=== PATIENT | male | born 1930 | race Caucasian/White ===

== ENCOUNTER 2020-05-01 21:52 | Inpatient (IN) ==
[2020-05-01] MEDS ORDERED: 0.9 % SODIUM CHLORIDE 1,000 ML IV ONE (22:38)
--- NOTE | 2020-05-01 22:44 | Emergency Department Note ---
SOB HPI General Chief Complaint: Shortness of Breath/Dyspnea Stated Complaint: SOB, covid Time Seen by Provider: 05/01/20 21:55 Source: EMS Mode of arrival: EMS Limitations: no limitations History of Present Illness HPI Narrative: Narrative: [facility] for shortness of breath from [place]. He is pretty confused and is not able to give me any meaningful history or review of systems. He denies any pain or trouble right now. Paperwork sent for facility shows that he is DNR with limited additional interventions. The paperwork shows that he had a low oxygen saturations between 87 and 89% on room air. They were concerned about his blood pressure and increased pulse. His temperature was 99.5 there. He was tachypneic He is requiring 1 L oxygen to keep oxygen saturations over 90%. Related Data Home Medications Medication Instructions Recorded Confirmed spironolactone 25 mg tablet 25 mg PO QDAY tab 03/18/20 04/14/20 acetaminophen 650 mg PO Q6HP PRN 05/02/20 05/02/20 arginine-vitamin C-vitamin E 1 g PO BID 05/02/20 05/02/20 ciprofloxacin HCl 250 mg PO BID 05/02/20 05/02/20 ferrous sulfate 325 mg PO BID 05/02/20 05/02/20 furosemide 20 mg PO BID 05/02/20 05/02/20 gabapentin 300 mg PO QHS 05/02/20 05/02/20 pantoprazole 40 mg PO QDAY 05/02/20 05/02/20 polyethylene glycol 3350 [Miralax] 17 g PO DAILY 05/02/20 05/02/20 potassium chloride 10 meq PO DAILY 05/02/20 05/02/20 warfarin 3 mg PO QDAY 05/02/20 05/02/20 zinc oxide 1 applic TOPICAL TID 05/02/20 05/02/20 Previous Rx's Medication Instructions Recorded levothyroxine 75 mcg tablet 75 mcg PO QAM #90 tab 07/23/19 tamsulosin 0.4 mg capsule 0.4 mg PO QDAY #90 cap 12/31/19 finasteride 5 mg tablet 5 mg PO QDAY #30 tab 03/18/20 catheter 14 Fr #120 each 04/09/20 Allergies Allergy/AdvReac Type Severity Reaction Status Date / Time No Known Drug Allergies Allergy Verified 05/01/20 21:56 Review of Systems ROS ROS Narrative: Narrative: All systems ED: reviewed and negative except as stated. 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, adenomatous (Chronic) Back pain (Chronic) Umbilical hernia (Chronic) PVD (peripheral vascular disease) (Chronic) 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) Elevated PSA (Chronic) Benign prostatic hyperplasia with urinary obstruction (Chronic) Hypertension (Chronic) Hypothyroidism (Chronic) 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) Encounter for long-term (current) use of medications (Chronic) Pulmonary embolism (Chronic) Atrial fibrillation (Chronic) Lymphedema (Chronic) CHF (congestive heart failure) (Chronic ~05/2016) Hyperlipidemia (Chronic) 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) Encounter for monitoring Coumadin therapy (Chronic) Medical History (Updated 05/02/20 @ 00:15 by Dinesh Alexandra MD) Atrial fibrillation (Chronic) Back pain (Chronic) 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) CHF (congestive heart failure) (Chronic ~05/2016) 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) Elevated PSA (Chronic) Encounter for long-term (current) use of medications (Chronic) Encounter for monitoring Coumadin therapy (Chronic) Hyperlipidemia (Chronic) Hypertension (Chronic) Hypothyroidism (Chronic) Lymphedema (Chronic) Osteoarthritis of right hip (Chronic) Polyp of colon, adenomatous (Chronic) Pulmonary embolism (Chronic) PVD (peripheral vascular disease) (Chronic) Umbilical hernia (Chronic) 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 He is wearing nasal cannula oxygen. Normocephalic atraumatic. Conjunctive are clear sclerae white nonicteric. No nasal discharge or congestion. Oropharynx with dry buccal mucosa. His tongue has a black coating on top. Neck is supple without lymphadenopathy or thyromegaly. Heart is regular rate and rhythm no murmur appreciated. He does have subtle wheezes and crackles in both lungs. However he seems to be moving air well and is able to talk in complete sentences without coughing. Abdomen is soft nontender nondistended. No peritoneal signs or guarding. No pedal edema. He is alert but oriented only to person and place-he is a rather poor historian and does not seem to know why he is here or what is going on-he is confused. It is noted he does have an indwelling urinary catheter with dark yellow urine in the bag General Limitations: no limitations Course Vital Signs Vital signs: Vital Signs Temperature 98.5 F 05/01/20 21:52 Pulse Rate 68 05/01/20 21:52 Respiratory Rate 20 05/01/20 21:52 Pulse Oximetry (%) 91 05/01/20 21:52 Temperature 98.5 F 05/02/20 01:54 Pulse Rate 98 H 05/02/20 01:54 Respiratory Rate 25 H 05/02/20 01:54 Blood Pressure 83/58 05/02/20 01:54 Pulse Oximetry (%) 93 05/02/20 01:54 [facility] MDM Narrative Medical decision making narrative: Narrative: COVID-19 positive with dyspnea. Suspect pneumonia. Will get chest x-ray laboratory ABG. Started him on oxygen. Confusion could be secondary to Covid pneumonia or alternatively he may have something else going on such as a UTI. So we will check for that as well. Chest x-ray is compatible with Covid pneumonia. After admission to the ER he developed atrial fibrillation with rapid ventricular response-see EKG. We will start some Cardizem. Acute kidney injury is seen with increase of creatinine to 2.3 now from a baseline of 1.3. He will need to come in the hospital because of these complications of Covid. With Dr. Calle our hospitalist. He agreed to accept the patient to the ICU Lab Data Result diagrams: 05/01/20 23:00 05/01/20 23:00 Labs: Lab Results 05/01/20 05/01/20 05/01/20 Range/Units 23:00 23:00 23:00 WBC 7.2 (4.5-11.0) K/mcL RBC 3.82 L (4.50-5.90) M/mcL Hgb 11.8 L (13.5-16.5) g/dL Hct 35.6 L (41.0-55.0) % MCV 93.2 (80.0-100.0) fL MCH 30.9 (26.0-34.0) pg MCHC 33.1 (31.0-36.0) g/dL RDW 15.0 H (11.5-14.5) % Plt Count 353 (140-440) K/mcL MPV 9.3 (7.4-10.4) fL Neut % (Auto) 56.6 (38.0-78.0) % Lymph % (Auto) 38.3 (15.0-49.0) % [place] % (Auto) 4.8 (1.0-12.0) % Eos % (Auto) 0 (0.0-7.0) % Baso % (Auto) 0.3 (0.0-2.0) % Lymph # (Auto) 2.74 (1.50-4.80) K/mcL [place] # (Auto) 0.34 (0.10-0.90) K/mcL Eos # (Auto) 0 (0.00-0.70) K/mcL Baso # (Auto) 0.02 (0.00-0.20) K/mcL Absolute Neutrophils 4.05 (1.80-8.00) K/mcL PT 32.2 H (11.9-14.5) sec INR 3.1 H (0.9-1.1) VBG Lactic Acid (0.5-2.0) mmol/L Sodium 135 (133-145) mmol/L Potassium 5.1 (3.3-5.1) mmol/L Chloride 103 (96-108) mmol/L Carbon Dioxide 21 L (22-30) mmol/L Anion Gap 11.0 (8.0-16.0) BUN 60 H (8-23) mg/dL Creatinine 2.3 H (0.7-1.2) mg/dL GFR Calculation 25 Glucose 115 H (70-105) mg/dL Calcium 8.4 L (8.6-10.4) mg/dL Magnesium 2.2 (1.6-2.5) mg/dL Total Bilirubin 0.5 (0.1-1.0) mg/dL AST 40 H (<40) U/L ALT 16 (<40) U/L Alkaline Phosphatase 103 (39-117) U/L Total Protein 8.3 (5.9-8.4) gm/dL Albumin 2.6 L (3.2-5.2) gm/dL Globulin 5.7 H (2.2-3.7) gm/dL Albumin/Globulin Ratio 0.5 L (1.0-2.3) Procalcitonin (<0.10) ng/mL 05/01/20 05/01/20 Range/Units 23:00 23:00 WBC (4.5-11.0) K/mcL RBC (4.50-5.90) M/mcL Hgb (13.5-16.5) g/dL Hct (41.0-55.0) % MCV (80.0-100.0) fL MCH (26.0-34.0) pg MCHC (31.0-36.0) g/dL RDW (11.5-14.5) % Plt Count (140-440) K/mcL MPV (7.4-10.4) fL Neut % (Auto) (38.0-78.0) % Lymph % (Auto) (15.0-49.0) % [place] % (Auto) (1.0-12.0) % Eos % (Auto) (0.0-7.0) % Baso % (Auto) (0.0-2.0) % Lymph # (Auto) (1.50-4.80) K/mcL [place] # (Auto) (0.10-0.90) K/mcL Eos # (Auto) (0.00-0.70) K/mcL Baso # (Auto) (0.00-0.20) K/mcL Absolute Neutrophils (1.80-8.00) K/mcL PT (11.9-14.5) sec INR (0.9-1.1) VBG Lactic Acid 1.7 (0.5-2.0) mmol/L Sodium (133-145) mmol/L Potassium (3.3-5.1) mmol/L Chloride (96-108) mmol/L Carbon Dioxide (22-30) mmol/L Anion Gap (8.0-16.0) BUN (8-23) mg/dL Creatinine (0.7-1.2) mg/dL GFR Calculation Glucose (70-105) mg/dL Calcium (8.6-10.4) mg/dL Magnesium (1.6-2.5) mg/dL Total Bilirubin (0.1-1.0) mg/dL AST (<40) U/L ALT (<40) U/L Alkaline Phosphatase (39-117) U/L Total Protein (5.9-8.4) gm/dL Albumin (3.2-5.2) gm/dL Globulin (2.2-3.7) gm/dL Albumin/Globulin Ratio (1.0-2.3) Procalcitonin 0.22 H (<0.10) ng/mL Radiology Data Radiology results reviewed: Yes I reviewed the patient's radiology results. Radiology results narrative: Chest x-ray one-view portable shows patchy infiltrate consistent with Covid pneumonia EKG Data EKG #1: EKG attestation: Yes I reviewed and interpreted this EKG. EKG results narrative: EKG shows likely atrial fibrillation with rapid ventricular response and a rate of 143. Discharge Plan Patient/Caregiver Discharge Instructions Pt seen by MANAGER INTERVENTIONAL/PA only: No Clinical Impression: Pneumonia due to 2019 novel coronavirus, Atrial fibrillation with rapid ventricular response, Acute kidney injury Patient Disposition: Xfer As Inpt ([facility]) Condition: Fair Discharge Date/Time: 05/02/20 01:55
[2020-05-01 23:27] LABS: Basophils # (Auto) 0.02 K/mcL (0.00-0.20); Basophils % (Auto) 0.3 % (0.0-2.0); Eosinophils # (Auto) 0 K/mcL (0.00-0.70); Eosinophils % (Auto) 0 % (0.0-7.0); Hematocrit 35.6 % (41.0-55.0); Hemoglobin 11.8 g/dL (13.5-16.5); Lymphocytes # (Auto) 2.74 K/mcL (1.50-4.80); Lymphocytes % (Auto) 38.3 % (15.0-49.0); Mean Cell Volume 93.2 fL (80.0-100.0); Mean Corpuscular HGB Conc 33.1 g/dL (31.0-36.0); Mean Platelet Volume 9.3 fL (7.4-10.4); Monocytes # (Auto) 0.34 K/mcL (0.10-0.90); Monocytes % (Auto) 4.8 % (1.0-12.0); Neutrophils % (Auto) 56.6 % (38.0-78.0); Platelet Count 353 K/mcL (140-440); RBC 3.82 M/mcL (4.50-5.90); WBC 7.2 K/mcL (4.5-11.0)
[2020-05-01 23:59] LABS: ALT/SGPT 16 U/L (<40); AST/SGOT 40 U/L (<40); Albumin 2.6 gm/dL (3.2-5.2); Albumin/Globulin Ratio 0.5 (1.0-2.3); Alkaline Phosphatase 103 U/L (39-117); Bilirubin,Total 0.5 mg/dL (0.1-1.0); Blood Urea Nitrogen 60 mg/dL (8-23); Calcium 8.4 mg/dL (8.6-10.4); Carbon Dioxide 21 mmol/L (22-30); Chloride 103 mmol/L (96-108); Globulin 5.7 gm/dL (2.2-3.7); Glomerular Filtration Rate 25; Glucose 115 mg/dL (70-105)
[2020-05-02] LABS: INR 3.1 (0.9-1.1); Prothrombin Time 32.2 sec (11.9-14.5)
[2020-05-02] MEDS ORDERED: DILTIAZEM 125 MG in DEXTROSE 5% IN WATER 100 ML IV SCH ×2 (00:15→12:15)
[2020-05-02] MEDS ORDERED: PROMETHAZINE 25 MG/ML VIAL IV PRN ×2 (00:44→02:11)
[2020-05-02] MEDS ORDERED: ACETAMINOPHEN 325 MG TABLET PO PRN ×2 (00:44→02:11)
[2020-05-02] MEDS ORDERED: 0.9 % SODIUM CHLORIDE 1,000 ML IV SCH ×2 (00:45→15:30)
[2020-05-02] MEDS ORDERED: VASOPRESSIN 20 UNIT in DEXTROSE 5% IN WATER 99 ML IV SCH ×2 (00:45→01:15)
[2020-05-02] MEDS ORDERED: AZITHROMYCIN 500 MG in DEXTROSE 5% IN WATER 250 ML IV SCH ×2 (00:45→09:00)
[2020-05-02] MEDS ORDERED: IPRATROPIUM 2.5 ML AMPUL.NEB NEB PRN ×2 (00:49→02:11)
[2020-05-02] MEDS ORDERED: LEVALBUTEROL 0.63 MG/3 ML AMPUL.NEB NEB PRN ×2 (00:49→02:11)
[2020-05-02] MEDS ORDERED: 0.9 % SODIUM CHLORIDE 250 ML IV ONE ×3 (00:56→15:26)
[2020-05-02] MEDS ORDERED: PIPERACILLIN SODIUM/TAZOBACTAM 2.25 GM in DEXTROSE 5% IN WATER 50 ML IV SCH (01:00)
[2020-05-02] MEDS ORDERED: MELATONIN 3 MG TABLET PO SCH ×2 (01:00→02:11)
[2020-05-02] MEDS ORDERED: 0.9 % SODIUM CHLORIDE 250 ML IV SCH ×2 (01:00→01:15)
[2020-05-02] MEDS ORDERED: ESMOLOL 2,500 MG in PREMIX 1 BAG IV SCH ×2 (01:00→02:11)
[2020-05-02] MEDS: 0.9 % SODIUM CHLORIDE 250 ML IV SCH ×8 (02:19→18:25)
[2020-05-02 02:56] LABS: Estimated Average Glucose(eAG) 137 mg/dL; Hemoglobin A1C 6.4 % Hgb (4.0-6.0)
--- NOTE | 2020-05-02 03:07 | XRay Report ---
CLINICAL INFORMATION: dyspnea COMPARISON: None. FINDINGS: The heart is mildly enlarged. Mediastinum and pulmonary vessels are normal. Moderate patchy infiltrates are present in the right midlung in the periphery of the entire left lung. No effusion IMPRESSION: Moderate patchy right midlung and peripheral left lung infiltrates. Infection versus aspiration Interpreted and Authenticated by: Gigi Person 05/02/20
[2020-05-02 03:53] LABS: ALT/SGPT 14 U/L (<40); AST/SGOT 35 U/L (<40); Albumin 2.2 gm/dL (3.2-5.2); Albumin/Globulin Ratio 0.4 (1.0-2.3); Alkaline Phosphatase 94 U/L (39-117); Bilirubin,Total 0.5 mg/dL (0.1-1.0); Blood Urea Nitrogen 56 mg/dL (8-23); Calcium 8.2 mg/dL (8.6-10.4); Carbon Dioxide 18 mmol/L (22-30); Chloride 98 mmol/L (96-108); Globulin 5.3 gm/dL (2.2-3.7); Glomerular Filtration Rate 27; Glucose 282 mg/dL (70-105)
[2020-05-02] MEDS: 0.9 % SODIUM CHLORIDE 10 ML SYRINGE IV SCH ×4 (05:27→22:18)
[2020-05-02] MEDS ORDERED: 0.9 % SODIUM CHLORIDE 10 ML SYRINGE IV SCH (06:00)
[2020-05-02 07:20] LABS: Basophils # (Auto) 0.01 K/mcL (0.00-0.20); Basophils % (Auto) 0.1 % (0.0-2.0); Eosinophils # (Auto) 0.01 K/mcL (0.00-0.70); Eosinophils % (Auto) 0.1 % (0.0-7.0); Hematocrit 33.5 % (41.0-55.0); Hemoglobin 11.1 g/dL (13.5-16.5); Lymphocytes # (Auto) 3.57 K/mcL (1.50-4.80); Lymphocytes % (Auto) 44.7 % (15.0-49.0); Mean Cell Volume 94.1 fL (80.0-100.0); Mean Corpuscular HGB Conc 33.1 g/dL (31.0-36.0); Mean Platelet Volume 9.9 fL (7.4-10.4); Monocytes # (Auto) 0.38 K/mcL (0.10-0.90); Monocytes % (Auto) 4.8 % (1.0-12.0); Neutrophils % (Auto) 50.3 % (38.0-78.0); Platelet Count 310 K/mcL (140-440); RBC 3.56 M/mcL (4.50-5.90); Red Cell Distribution Width 15.3 % (11.5-14.5)
[2020-05-02] MEDS ORDERED: PANTOPRAZOLE 40 MG TABLET PO SCH ×2 (07:30)
[2020-05-02 07:52] LABS: INR 3.2 (0.9-1.1); Prothrombin Time 33.4 sec (11.9-14.5)
[2020-05-02] MEDS: PIPERACILLIN SODIUM/TAZOBACTAM 2.25 GM in DEXTROSE 5% IN WATER 50 ML IV SCH ×3 (08:51→17:38)
[2020-05-02] MEDS ORDERED: VITAMIN D3 1,000 UNIT TABLET PO SCH ×2 (09:00)
[2020-05-02] MEDS ORDERED: CHLORHEXIDINE GLUCONATE 1 ML ORAL.SOL SWABMOUTH SCH ×2 (09:00)
[2020-05-02] MEDS ORDERED: THIAMINE 100 MG TABLET PO SCH ×2 (09:00)
[2020-05-02] MEDS ORDERED: METOPROLOL SUCCINATE 25 MG TAB.XL.24H PO SCH (09:00)
[2020-05-02] MEDS ORDERED: DEXAMETHASONE 4 MG TABLET PO SCH ×2 (09:00)
--- NOTE | 2020-05-02 11:12 | Internal Med History&Physical ---
HPI History of Present Illness Patient information: Note initiated : 05/02/20 at 11:10 am Service Date, if different from initiated Date: [] Patient: Yusuf Schwab a 89 y/o M admitted on 05/02/20 for SOB, covid. Chief Complaint: [] History of present illness: Mr. Schwab is a 89 year old M with a past medical history of CHF, CAD, atrial fibrillation, CKD, positive COVID-19 and hypothyroidism who was brought to the ER from [facility] facility due to shortness of breath, oxygen desaturation, and low-grade fever. Patient is not able to give meaningful history due to mental status. In the ER, chest x-ray showed Moderate patchy right midlung and peripheral left lung infiltrates. Infection versus aspiration. His heart rate was high and the blood pressure was soft. Diltiazem was given to control the heart rate. Review of Systems ROS unobtainable: due to mental status PFSH PFSH All Active Problems Pneumonia due to 2019 novel coronavirus (Acute) Atrial fibrillation with rapid ventricular response (Acute) Acute kidney injury (Acute) Chronic kidney disease (Acute) Urinary retention (Acute) Bilateral hydronephrosis (Acute) UTI (urinary tract infection) (Acute) Venous stasis ulcer limited to breakdown of skin with varicose veins (Acute) Medicare annual wellness visit, subsequent (Acute) History of total right hip replacement (Chronic) Polyp of colon, adenomatous (Chronic) Back pain (Chronic) Umbilical hernia (Chronic) PVD (peripheral vascular disease) (Chronic) 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) Elevated PSA (Chronic) Benign prostatic hyperplasia with urinary obstruction (Chronic) Hypertension (Chronic) Hypothyroidism (Chronic) 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) Encounter for long-term (current) use of medications (Chronic) Pulmonary embolism (Chronic) Atrial fibrillation (Chronic) Lymphedema (Chronic) CHF (congestive heart failure) (Chronic ~05/2016) Hyperlipidemia (Chronic) 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) Encounter for monitoring Coumadin therapy (Chronic) Medical History Atrial fibrillation (Chronic) Back pain (Chronic) 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) CHF (congestive heart failure) (Chronic ~05/2016) 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) Elevated PSA (Chronic) Encounter for long-term (current) use of medications (Chronic) Encounter for monitoring Coumadin therapy (Chronic) Hyperlipidemia (Chronic) Hypertension (Chronic) Hypothyroidism (Chronic) Lymphedema (Chronic) Osteoarthritis of right hip (Chronic) Polyp of colon, adenomatous (Chronic) Pulmonary embolism (Chronic) PVD (peripheral vascular disease) (Chronic) Umbilical hernia (Chronic) 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) Surgical History History of total right hip replacement (Chronic) Family History Other No pertinent family history Social History marital status: unknown occupational status: retired smoking status: Unknown if ever smoked alcohol intake frequency: does not drink substance use type: does not use MEDS/ALLERGIES Home Medications and Allergies Home Medications Medication Instructions Recorded Confirmed Type levothyroxine 75 mcg tablet 75 mcg PO QAM #90 tab 07/23/19 05/02/20 Rx tamsulosin 0.4 mg capsule 0.4 mg PO QDAY #90 cap 12/31/19 05/02/20 Rx finasteride 5 mg tablet 5 mg PO QDAY #30 tab 03/18/20 05/02/20 Rx spironolactone 25 mg tablet 25 mg PO QDAY tab 03/18/20 05/02/20 History catheter 14 Fr #120 each 04/09/20 04/14/20 Rx acetaminophen 650 mg PO Q6HP PRN 05/02/20 05/02/20 History arginine-vitamin C-vitamin E 1 g PO BID 05/02/20 05/02/20 History ciprofloxacin HCl 250 mg PO BID 05/02/20 05/02/20 History ferrous sulfate 325 mg PO BID 05/02/20 05/02/20 History furosemide 20 mg PO BID 05/02/20 05/02/20 History gabapentin 300 mg PO QHS 05/02/20 05/02/20 History pantoprazole 40 mg PO QDAY 05/02/20 05/02/20 History polyethylene glycol 3350 [Miralax] 17 g PO DAILY 05/02/20 05/02/20 History potassium chloride 10 meq PO DAILY 05/02/20 05/02/20 History warfarin 3 mg PO QDAY 05/02/20 05/02/20 History zinc oxide 1 applic TOPICAL TID 05/02/20 05/02/20 History Allergies Allergy/AdvReac Type Severity Reaction Status Date / Time No Known Drug Allergies Allergy Verified 05/01/20 21:56 EXAM Constitutional Vitals: Temp Pulse Resp BP Pulse Ox 97.8 F 64 21 95/46 93 05/02/20 08:03 05/02/20 10:01 05/02/20 10:01 05/02/20 10:01 05/02/20 10:01 Additional findings Additional findings: General - No acute distress Eyes -no conjunctival injection ENT no rhinorrhea, no noticeable or palpable swelling Neck no JVD, no thyromegaly Respiratory: Lungs -diminished breathing sounds, bibasilar crackles. Cardiovascular -irregular irregular, no m/r/g, GI - Normal bowel sounds, no distended, soft. Extremeties - No edema, cyanosis or clubbing Hemo/lymphatic/immune no lymphadenopathy Neurological Alert and awake Psychiatry unable to complete due to mental status DATA Data Completed and Pending Labs: Labs from last 24 hours 05/02/20 05/02/20 05/02/20 13:50 07:40 05:04 WBC 8.0 RBC 3.56 L Hgb 11.1 L Hct 33.5 L MCV 94.1 MCH 31.2 MCHC 33.1 RDW 15.3 H Plt Count 310 MPV 9.9 Neut % (Auto) 50.3 Lymph % (Auto) 44.7 [place] % (Auto) 4.8 Eos % (Auto) 0.1 Baso % (Auto) 0.1 Lymph # (Auto) 3.57 [place] # (Auto) 0.38 Eos # (Auto) 0.01 Baso # (Auto) 0.01 Absolute Neutrophils 4.02 PT INR VBG Lactic Acid Sodium 129 L Potassium 4.7 Chloride 98 Carbon Dioxide 18 L Anion Gap 13.0 BUN 56 H Creatinine 2.1 H GFR Calculation 27 Glucose 282 H Hemoglobin A1c 6.4 H Estim Average Glucose 137 Calcium 8.2 L Magnesium Ferritin 1986.0 H Total Bilirubin 0.5 AST 35 ALT 14 Alkaline Phosphatase 94 Troponin T 0.07 H* C-Reactive Protein 6.80 H NT-Pro-B Natriuret Pep 868.0 H Total Protein 7.5 Albumin 2.2 L Globulin 5.3 H Albumin/Globulin Ratio 0.4 L Procalcitonin 05/02/20 05/02/20 05/01/20 05:04 01:50 23:00 WBC RBC Hgb Hct MCV MCH MCHC RDW Plt Count MPV Neut % (Auto) Lymph % (Auto) [place] % (Auto) Eos % (Auto) Baso % (Auto) Lymph # (Auto) [place] # (Auto) Eos # (Auto) Baso # (Auto) Absolute Neutrophils PT 33.4 H INR 3.2 H VBG Lactic Acid Sodium Potassium Chloride Carbon Dioxide Anion Gap BUN Creatinine GFR Calculation Glucose Hemoglobin A1c Estim Average Glucose Calcium Magnesium Ferritin Total Bilirubin AST ALT Alkaline Phosphatase Troponin T 0.07 H* C-Reactive Protein NT-Pro-B Natriuret Pep Total Protein Albumin Globulin Albumin/Globulin Ratio Procalcitonin 0.22 H 05/01/20 05/01/20 05/01/20 23:00 23:00 23:00 WBC RBC Hgb Hct MCV MCH MCHC RDW Plt Count MPV Neut % (Auto) Lymph % (Auto) [place] % (Auto) Eos % (Auto) Baso % (Auto) Lymph # (Auto) [place] # (Auto) Eos # (Auto) Baso # (Auto) Absolute Neutrophils PT 32.2 H INR 3.1 H VBG Lactic Acid 1.7 Sodium 135 Potassium 5.1 Chloride 103 Carbon Dioxide 21 L Anion Gap 11.0 BUN 60 H Creatinine 2.3 H GFR Calculation 25 Glucose 115 H Hemoglobin A1c Estim Average Glucose Calcium 8.4 L Magnesium 2.2 Ferritin Total Bilirubin 0.5 AST 40 H ALT 16 Alkaline Phosphatase 103 Troponin T C-Reactive Protein NT-Pro-B Natriuret Pep Total Protein 8.3 Albumin 2.6 L Globulin 5.7 H Albumin/Globulin Ratio 0.5 L Procalcitonin 05/01/20 23:00 WBC 7.2 RBC 3.82 L Hgb 11.8 L Hct 35.6 L MCV 93.2 MCH 30.9 MCHC 33.1 RDW 15.0 H Plt Count 353 MPV 9.3 Neut % (Auto) 56.6 Lymph % (Auto) 38.3 [place] % (Auto) 4.8 Eos % (Auto) 0 Baso % (Auto) 0.3 Lymph # (Auto) 2.74 [place] # (Auto) 0.34 Eos # (Auto) 0 Baso # (Auto) 0.02 Absolute Neutrophils 4.05 PT INR VBG Lactic Acid Sodium Potassium Chloride Carbon Dioxide Anion Gap BUN Creatinine GFR Calculation Glucose Hemoglobin A1c Estim Average Glucose Calcium Magnesium Ferritin Total Bilirubin AST ALT Alkaline Phosphatase Troponin T C-Reactive Protein NT-Pro-B Natriuret Pep Total Protein Albumin Globulin Albumin/Globulin Ratio Procalcitonin A/P Narrative A/P Narrative: 1. Acute hypoxic respiratory failure Pulse ox Oxygen therapy to keep oxygen saturations greater than 92% He is now on 2L 2. Pneumonia, Covid 19, CAP or aspiration 3. Covid 19 positive Blood culture Sputum culture MRSA screen Azithromycin and Zosyn Inhalers On warfarin Dexamethasone 6 mg p.o. daily Thiamine, vitamin D, melatonin 25 hydroxy vitamin D, CRP, ferritin, lactic acid, calcitonin, troponin Speech pathology consult 4. Septic shock/hypotension Antibiotics Vasopressin as needed to keep MAP 65 5. Atrial fibrillation with RVR Diltiazem drip as needed Warfarin, dosing by pharmacy 6. LILI on CKD creatinine 1.0 on Intake and output Avoid nephrotoxic meds Repeat renal function in morning 7. Supratherapeutic INR 3.1 Warfarin is on hold, dosing by pharmacy Repeat INR daily 8. Hypothyroidism Continue Synthroid 9. CHF Intake and output 10. Hyponatremia Repeat sodium in the morning 11. Elevation of troponin Troponin 0.07, 0.07 Could be due to LILI on CKD EKG no ST elevation Aspirin and Lipitor 12. DVT prophylaxis: Warfarin 13. CODE STATUS: DNR Time Spent With Patient Time: Total time spent is greater than 50% in coordination of care (as documented) at patient's floor/unit and/or counseling patient:
[2020-05-02] MEDS: VASOPRESSIN 20 UNIT in DEXTROSE 5% IN WATER 99 ML IV SCH ×2 (15:31→18:52)
--- NOTE | 2020-05-02 18:51 | Event Note ---
Event Note Event Note: FLORA Todd and I updated and explained his condition to daughter Brisa (POA) by phone ([phone]) and discussed the treatment options including transferring him to higher level. Brisa would not like him to suffer and would like to purse comfort care for him. Just give him pain meds, ativan for anxiety/agitation, etc and discontinue all other meds including vasopressin which are not related to comfort care. No blood test. No further workup. Brisa would like to start comfort care now.
[2020-05-02] MEDS ORDERED: morphine 2 MG/ML VIAL IV PRN (18:53)
[2020-05-02] MEDS ORDERED: LORazepam 2 MG/ML VIAL IV PRN (18:53)
[2020-05-02] MEDS ORDERED: ONDANSETRON 4 MG/2 ML VIAL IV PRN ×2 (18:53→20:55)
[2020-05-02] MEDS ORDERED: SCOPOLAMINE 1 PATCH PATCH TOPICAL SCH (19:00)
[2020-05-02] MEDS ORDERED: FERROUS SULFATE 325 MG TABLET PO SCH (21:00)
[2020-05-02] MEDS ORDERED: GABAPENTIN 300 MG CAPSULE PO SCH (21:00)
[2020-05-02] MEDS: morphine 2 MG/ML VIAL IV PRN (22:18)
[2020-05-03] MEDS: 0.9 % SODIUM CHLORIDE 10 ML SYRINGE IV SCH ×3 (05:56→22:06)
[2020-05-03] MEDS: morphine 2 MG/ML VIAL IV PRN ×2 (05:58→09:43)
[2020-05-03] MEDS ORDERED: LEVOTHYROXINE 75 MCG TABLET PO SCH (07:30)
[2020-05-03] MEDS ORDERED: TAMSULOSIN 0.4 MG CAPSULE PO SCH (09:00)
[2020-05-03] MEDS ORDERED: ATORVASTATIN 40 MG TABLET PO SCH (09:00)
[2020-05-03] MEDS ORDERED: FINASTERIDE 5 MG TABLET PO SCH (09:00)
[2020-05-03] MEDS ORDERED: ASPIRIN 81 MG TAB.CHEW PO SCH (09:00)
[2020-05-03] MEDS ORDERED: POLYETHYLENE GLYCOL 3350 17 GM PACKET PO SCH (09:00)
--- NOTE | 2020-05-03 17:05 | Internal Med Progress Note ---
SUBJECTIVE Subjective Patient information: Note initiated : 05/03/20 at 5:03 pm Service Date, if different from initiated Date: [] Patient: Yusuf Schwab a 89 y/o M admitted on 05/02/20 for SOB, covid. Chief Complaint: [] Mr. Schwab is a 89 year old M with a past medical history of CHF, CAD, atrial fibrillation, CKD, positive COVID-19 and hypothyroidism who was brought to the ER from [facility] due to shortness of breath, oxygen desaturation, and low-grade fever. Patient is not able to give meaningful history due to mental status. In the ER, chest x-ray showed Moderate patchy right midlung and peripheral left lung infiltrates. Infection versus aspiration. His heart rate was high and the blood pressure was soft. Diltiazem was given to control the heart rate. 05/03 Comfort care was initiated last night. Continue comfort care Review of Systems ROS unobtainable: due to mental status Constitutional Vitals: Vital Signs Temp Pulse Resp BP Pulse Ox 98.1 F 77 14 104/64 89 L 05/03/20 10:03 05/03/20 10:03 05/03/20 04:14 05/03/20 10:03 05/03/20 10:03 Period Temp Pulse Resp BP Sys/Lima Pulse Ox Last 24 Hr 97.2 F-98.8 F 30-77 14-23 91-117/50-72 89-97 Intake and Output 05/03/20 05/03/20 05/03/20 05:59 13:59 21:59 Intake Total 0 540 Output Total 550 600 Balance -550 -60 Intake & Output: Intake & Output 05/03/20 05/03/20 05/03/20 05:59 13:59 21:59 Intake Total 0 540 Output Total 550 600 Balance -550 -60 Intake: Oral 0 540 Output: Urine Catheter Amount 550 600 Other: Meal Lunch Percent of Meal Consumed 50% Feeding Ability Assist with Tray Set Up Urine Appearance Cloudy Clear Urine Color Bright Yellow Bright Yellow Additional findings Additional findings: General: sleeping, no acute distress Eye: no conjunctival injection. HEENT: mild JVD or thyroid megaly Chest: No abnormalities Heart: RRR, no gallop Lungs: Deminished BS, bibasilar crackles Abdomen: Normal bowel sounds, soft, distended Extremities: no cyanosis or clubbing Neurology: sleeping Psych: sleeping OBJ DATA Labs CBC & Chem 7: 05/02/20 05:04 05/02/20 13:50 Labs: Abnormal Lab Results 05/02/20 05/02/20 05/02/20 14:02 13:50 07:40 RBC Hgb Hct RDW PT INR Sodium 129 L Carbon Dioxide 18 L BUN 56 H Creatinine 2.1 H Glucose 282 H Hemoglobin A1c 6.4 H Calcium 8.2 L Ferritin 1986.0 H AST Troponin T 0.06 H* 0.07 H* C-Reactive Protein 6.80 H NT-Pro-B Natriuret Pep 868.0 H Albumin 2.2 L Globulin 5.3 H Albumin/Globulin Ratio 0.4 L Procalcitonin 05/02/20 05/02/20 05/02/20 05:04 05:04 01:50 RBC 3.56 L Hgb 11.1 L Hct 33.5 L RDW 15.3 H PT 33.4 H INR 3.2 H Sodium Carbon Dioxide BUN Creatinine Glucose Hemoglobin A1c Calcium Ferritin AST Troponin T 0.07 H* C-Reactive Protein NT-Pro-B Natriuret Pep Albumin Globulin Albumin/Globulin Ratio Procalcitonin 05/01/20 05/01/20 05/01/20 23:00 23:00 23:00 RBC Hgb Hct RDW PT 32.2 H INR 3.1 H Sodium Carbon Dioxide 21 L BUN 60 H Creatinine 2.3 H Glucose 115 H Hemoglobin A1c Calcium 8.4 L Ferritin AST 40 H Troponin T C-Reactive Protein NT-Pro-B Natriuret Pep Albumin 2.6 L Globulin 5.7 H Albumin/Globulin Ratio 0.5 L Procalcitonin 0.22 H 05/01/20 23:00 RBC 3.82 L Hgb 11.8 L Hct 35.6 L RDW 15.0 H PT INR Sodium Carbon Dioxide BUN Creatinine Glucose Hemoglobin A1c Calcium Ferritin AST Troponin T C-Reactive Protein NT-Pro-B Natriuret Pep Albumin Globulin Albumin/Globulin Ratio Procalcitonin Meds: Medications Lorazepam (Ativan) 0.5 mg IV Q2-4HP PRN PRN Reason: ANXIETY/SEDATION Morphine Sulfate (Morphine) 2 mg IV Q2HP PRN; Protocol PRN Reason: Per Pain Protocol Last Admin: 05/03/20 09:43 Dose: 2 mg Documented by: Ondansetron HCl (Zofran) 4 mg IV Q4-6HP PRN PRN Reason: Nausea And Vomiting Scopolamine (Transderm-Scop) 1 patch TOPICAL Q72H [facility] Sodium Chloride (Saline Flush) 10 ml IV Q8 BIBI Last Admin: 05/03/20 13:06 Dose: 10 ml Documented by: A/P Narrative A/P Narrative: Assessment: 1. Acute hypoxic respiratory failure 2. Pneumonia, Covid 19, CAP or aspiration 3. Covid 19 positive 4. Septic shock/hypotension 5. Atrial fibrillation with RVR 6. LILI on CKD 7. Supratherapeutic INR 3.1 8. Hypothyroidism 9. CHF 10. Hyponatremia 11. Elevation of troponin Plan: Comfort care only: Ativan 0.5 mg IV every 2 to 4 hours as needed Morphine 2 mg IV every 2 hours as needed Zofran 4 mg will IV every 4 to 6 hours as needed Scopolamine patch 1 patch topical q. 72 Time Spent With Patient Time: Total time spent is greater than 50% in coordination of care (as documented) at patient's floor/unit and/or counseling patient:
[2020-05-04] MEDS: morphine 2 MG/ML VIAL IV PRN ×5 (00:01→21:09)
[2020-05-04] MEDS: 0.9 % SODIUM CHLORIDE 10 ML SYRINGE IV SCH ×4 (03:55→21:08)
--- NOTE | 2020-05-04 14:50 | Internal Med Progress Note ---
SUBJECTIVE Subjective Patient information: Note initiated : 05/04/20 at 2:48 pm Service Date, if different from initiated Date: [] Patient: Yusuf Schwab a 89 y/o M admitted on 05/02/20 for SOB, covid. Chief Complaint: [] Mr. Schwab is a 89 year old M with a past medical history of CHF, CAD, atrial fibrillation, CKD, positive COVID-19 and hypothyroidism who was brought to the ER from [facility] due to shortness of breath, oxygen desaturation, and low-grade fever. Patient is not able to give meaningful history due to mental status. In the ER, chest x-ray showed Moderate patchy right midlung and peripheral left lung infiltrates. Infection versus aspiration. His heart rate was high and the blood pressure was soft. Diltiazem was given to control the heart rate. 05/03 Comfort care was initiated last night. Continue comfort care 05/04 Patient seems to be comfortable Continue comfort care Review of Systems ROS unobtainable: due to mental status Constitutional Vitals: Vital Signs Temp Pulse Resp BP Pulse Ox 98.6 F 49 L 30 H 96/52 82 L 05/04/20 10:36 05/04/20 10:36 05/04/20 10:36 05/04/20 10:36 05/04/20 10:36 Period Temp Pulse Resp BP Sys/Lima Pulse Ox Last 24 Hr 97.7 F-98.6 F 49-128 24-30 96-97/52-64 82-86 Intake and Output 05/04/20 05/04/20 05/04/20 05:59 13:59 21:59 Output Total 325 Balance -325 Intake & Output: Intake & Output 05/04/20 05/04/20 05/04/20 05:59 13:59 21:59 Output Total 325 Balance -325 Output: Urine Catheter Amount 325 Other: Urine Appearance Cloudy Urine Color Bright Yellow Additional findings Additional findings: General: sleeping, no acute distress Eye: no conjunctival injection. HEENT: mild JVD or thyroid megaly Chest: No abnormalities Heart: RRR, no gallop Lungs: Deminished BS, bibasilar crackles Abdomen: Normal bowel sounds, soft, distended Extremities: no cyanosis or clubbing Neurology: sleeping Psych: sleeping OBJ DATA Labs CBC & Chem 7: 05/02/20 05:04 05/02/20 13:50 Labs: Abnormal Lab Results 05/02/20 05/02/20 05/02/20 14:02 13:50 07:40 RBC Hgb Hct RDW PT INR Sodium 129 L Carbon Dioxide 18 L BUN 56 H Creatinine 2.1 H Glucose 282 H Hemoglobin A1c 6.4 H Calcium 8.2 L Ferritin 1986.0 H AST Troponin T 0.06 H* 0.07 H* C-Reactive Protein 6.80 H NT-Pro-B Natriuret Pep 868.0 H Albumin 2.2 L Globulin 5.3 H Albumin/Globulin Ratio 0.4 L Procalcitonin 05/02/20 05/02/20 05/02/20 05:04 05:04 01:50 RBC 3.56 L Hgb 11.1 L Hct 33.5 L RDW 15.3 H PT 33.4 H INR 3.2 H Sodium Carbon Dioxide BUN Creatinine Glucose Hemoglobin A1c Calcium Ferritin AST Troponin T 0.07 H* C-Reactive Protein NT-Pro-B Natriuret Pep Albumin Globulin Albumin/Globulin Ratio Procalcitonin 05/01/20 05/01/20 05/01/20 23:00 23:00 23:00 RBC Hgb Hct RDW PT 32.2 H INR 3.1 H Sodium Carbon Dioxide 21 L BUN 60 H Creatinine 2.3 H Glucose 115 H Hemoglobin A1c Calcium 8.4 L Ferritin AST 40 H Troponin T C-Reactive Protein NT-Pro-B Natriuret Pep Albumin 2.6 L Globulin 5.7 H Albumin/Globulin Ratio 0.5 L Procalcitonin 0.22 H 05/01/20 23:00 RBC 3.82 L Hgb 11.8 L Hct 35.6 L RDW 15.0 H PT INR Sodium Carbon Dioxide BUN Creatinine Glucose Hemoglobin A1c Calcium Ferritin AST Troponin T C-Reactive Protein NT-Pro-B Natriuret Pep Albumin Globulin Albumin/Globulin Ratio Procalcitonin Meds: Medications Lorazepam (Ativan) 0.5 mg IV Q2-4HP PRN PRN Reason: ANXIETY/SEDATION Morphine Sulfate (Morphine) 2 mg IV Q2HP PRN; Protocol PRN Reason: Per Pain Protocol Last Admin: 05/04/20 10:27 Dose: 2 mg Documented by: Ondansetron HCl (Zofran) 4 mg IV Q4-6HP PRN PRN Reason: Nausea And Vomiting Scopolamine (Transderm-Scop) 1 patch TOPICAL Q72H [facility] Sodium Chloride (Saline Flush) 10 ml IV Q8 [facility] Last Admin: 05/04/20 03:55 Dose: 10 ml Documented by: A/P Narrative A/P Narrative: 1. Acute hypoxic respiratory failure 2. Pneumonia, Covid 19, CAP or aspiration 3. Covid 19 positive 4. Septic shock/hypotension 5. Atrial fibrillation with RVR 6. LILI on CKD 7. Supratherapeutic INR 3.1 8. Hypothyroidism 9. CHF 10. Hyponatremia 11. Elevation of troponin Plan: Comfort care only: Ativan 0.5 mg IV every 2 to 4 hours as needed Morphine 2 mg IV every 2 hours as needed Zofran 4 mg will IV every 4 to 6 hours as needed Scopolamine patch 1 patch topical q. 72 Time Spent With Patient Time: Total time spent is greater than 50% in coordination of care (as documented) at patient's floor/unit and/or counseling patient:
[2020-05-05] MEDS: morphine 2 MG/ML VIAL IV PRN ×2 (01:53→15:13)
[2020-05-05] MEDS: 0.9 % SODIUM CHLORIDE 10 ML SYRINGE IV SCH ×4 (04:23→21:56)
[2020-05-05] MEDS ORDERED: SCOPOLAMINE 1 PATCH PATCH TOPICAL SCH (19:00)
--- NOTE | 2020-05-05 20:16 | Internal Med Progress Note ---
SUBJECTIVE Subjective Patient information: Note initiated : 05/05/20 at 8:14 pm Service Date, if different from initiated Date: [] Patient: Yusuf Schwab a 89 y/o M admitted on 05/02/20 for SOB, covid. Chief Complaint: [] Mr. Schwab is a 89 year old M with a past medical history of CHF, CAD, atrial fibrillation, CKD, positive COVID-19 and hypothyroidism who was brought to the ER from [facility] due to shortness of breath, oxygen desaturation, and low-grade fever. Patient is not able to give meaningful history due to mental status. In the ER, chest x-ray showed Moderate patchy right midlung and peripheral left lung infiltrates. Infection versus aspiration. His heart rate was high and the blood pressure was soft. Diltiazem was given to control the heart rate. 05/03 Comfort care was initiated last night. Continue comfort care 05/04 Patient seems to be comfortable Continue comfort care 05/05 Pt seems to be comfortable. Continue comfort care. Review of Systems ROS unobtainable: due to mental status Constitutional Vitals: Vital Signs Temp Pulse Resp BP Pulse Ox 98.0 F 119 H 28 H 82/44 74 L 05/05/20 08:00 05/05/20 18:52 05/05/20 18:52 05/05/20 18:52 05/05/20 18:52 Period Temp Pulse Resp BP Sys/Lima Pulse Ox Last 24 Hr 98.0 F 119-124 28-30 82-95/44-57 74-78 Intake and Output 05/05/20 05/05/20 05/05/20 05:59 13:59 21:59 Intake Total 120 Balance 120 Intake & Output: Intake & Output 05/05/20 05/05/20 05/05/20 05:59 13:59 21:59 Intake Total 120 Balance 120 Intake: Oral 120 Other: Percent of Meal Consumed Refused Urine Appearance Cloudy Urine Color Light [place] Additional findings Additional findings: General: sleeping, no acute distress Eye: no conjunctival injection. HEENT: mild JVD or thyroid megaly Chest: No abnormalities Heart: RRR, no gallop Lungs: Deminished BS, bibasilar crackles Abdomen: Normal bowel sounds, soft, distended Extremities: no cyanosis or clubbing Neurology: sleeping Psych: sleeping OBJ DATA Labs CBC & Chem 7: 05/02/20 05:04 05/02/20 13:50 Meds: Medications Lorazepam (Ativan) 0.5 mg IV Q2-4HP PRN PRN Reason: ANXIETY/SEDATION Morphine Sulfate (Morphine) 2 mg IV Q2HP PRN; Protocol PRN Reason: Per Pain Protocol Last Admin: 05/05/20 15:13 Dose: 2 mg Documented by: Ondansetron HCl (Zofran) 4 mg IV Q4-6HP PRN PRN Reason: Nausea And Vomiting Scopolamine (Transderm-Scop) 1 patch TOPICAL Q72H [facility] Last Admin: 05/05/20 18:31 Dose: 1 patch Documented by: Sodium Chloride (Saline Flush) 10 ml IV Q8 [facility] Last Admin: 05/05/20 18:32 Dose: 10 ml Documented by: A/P Narrative A/P Narrative: 1. Acute hypoxic respiratory failure 2. Pneumonia, Covid 19, CAP or aspiration 3. Covid 19 positive 4. Septic shock/hypotension 5. Atrial fibrillation with RVR 6. LILI on CKD 7. Supratherapeutic INR 3.1 8. Hypothyroidism 9. CHF 10. Hyponatremia 11. Elevation of troponin Plan: Comfort care only: Ativan 0.5 mg IV every 2 to 4 hours as needed Morphine 2 mg IV every 2 hours as needed Zofran 4 mg will IV every 4 to 6 hours as needed Scopolamine patch 1 patch topical q. 72 Time Spent With Patient Time: Total time spent is greater than 50% in coordination of care (as documented) at patient's floor/unit and/or counseling patient:
[2020-05-06] MEDS: morphine 2 MG/ML VIAL IV PRN ×4 (00:01→19:30)
[2020-05-06] MEDS: 0.9 % SODIUM CHLORIDE 10 ML SYRINGE IV SCH ×4 (04:16→20:02)
--- NOTE | 2020-05-06 12:36 | Internal Med Progress Note ---
SUBJECTIVE Subjective Patient information: Note initiated : 05/06/20 at 12:33 pm Service Date, if different from initiated Date: [] Patient: Yusuf Schwab a 89 y/o M admitted on 05/02/20 for SOB, covid. Chief Complaint: Interval history: Mr. Schwab is a 89 year old M with a past medical history of CHF, CAD, atrial fibrillation, CKD, positive COVID-19 and hypothyroidism who was brought to the ER from [facility] due to shortness of breath, oxygen desaturation, and low-grade fever. Patient is not able to give meaningful history due to mental status. In the ER, chest x-ray showed Moderate patchy right midlung and peripheral left lung infiltrates. Infection versus aspiration. His heart rate was high and the blood pressure was soft. Diltiazem was given to control the heart rate. 05/03 Comfort care was initiated last night. Continue comfort care 05/04 Patient seems to be comfortable Continue comfort care 05/05 Pt seems to be comfortable. Continue comfort care. 05/06-patient appears comfortable. Requiring frequent doses of morphine. Remains minimally responsive occasionally responding g to name at times, no active concerns per nursing staff. On COVID-19 precautions. Constitutional Vitals: Vital Signs Temp Pulse Resp BP Pulse Ox 98.1 F 93 H 32 H 98/64 78 L 05/06/20 06:53 05/06/20 07:25 05/06/20 07:25 05/06/20 06:53 05/06/20 07:25 Period Temp Pulse Resp BP Sys/Lima Pulse Ox Last 24 Hr 98.1 F 93-119 28-32 82-98/44-64 74-78 Intake and Output 05/05/20 05/06/20 05/06/20 21:59 05:59 13:59 Output Total 1200 Balance -1200 Labored breathing Minimally responsive Intake & Output: Intake & Output 05/05/20 05/06/20 05/06/20 21:59 05:59 13:59 Output Total 1200 Balance -1200 Output: Urine Catheter Amount 1200 Other: Percent of Meal Consumed Refused Urine Appearance Cloudy Urine Color Light Bianca OBJ DATA Labs CBC & Chem 7: 05/02/20 05:04 05/02/20 13:50 Meds: Medications Lorazepam (Ativan) 0.5 mg IV Q2-4HP PRN PRN Reason: ANXIETY/SEDATION Morphine Sulfate (Morphine) 2 mg IV Q2HP PRN; Protocol PRN Reason: Per Pain Protocol Last Admin: 05/06/20 04:16 Dose: 2 mg Documented by: Ondansetron HCl (Zofran) 4 mg IV Q4-6HP PRN PRN Reason: Nausea And Vomiting Scopolamine (Transderm-Scop) 1 patch TOPICAL Q72H [facility] Last Admin: 05/05/20 18:31 Dose: 1 patch Documented by: Sodium Chloride (Saline Flush) 10 ml IV Q8 [facility] Last Admin: 05/06/20 04:16 Dose: 10 ml Documented by: A/P Narrative A/P Narrative: 1. Acute hypoxic respiratory failure 2. Pneumonia, Covid 19 3. Covid 19 positive 4. Septic shock/hypotension 5. Atrial fibrillation with RVR 6. LILI on CKD 7. Supratherapeutic INR 3.1 8. Hypothyroidism 9. CHF 10. Hyponatremia 11. Elevation of troponin Plan: Continue aggressive end-of-life care All therapies directed towards pain and symptom management as below Ativan 0.5 mg IV every 2 to 4 hours as needed Morphine 2 mg IV every 2 hours as needed Zofran 4 mg will IV every 4 to 6 hours as needed Scopolamine patch 1 patch topical q. 72 Time Spent With Patient Time: Total time spent is greater than 50% in coordination of care (as documented) at patient's floor/unit and/or counseling patient:
[2020-05-06] MEDS: morphine 2 MG/ML VIAL IV SCH ×2 (19:59→23:42)
[2020-05-06] MEDS: LORazepam 2 MG/ML VIAL IV PRN (20:02)
[2020-05-07] MEDS: LORazepam 2 MG/ML VIAL IV PRN ×2 (02:02→05:35)
[2020-05-07] MEDS: 0.9 % SODIUM CHLORIDE 10 ML SYRINGE IV SCH ×3 (04:05→21:12)
[2020-05-07] MEDS: morphine 2 MG/ML VIAL IV SCH ×6 (04:05→23:47)
--- NOTE | 2020-05-07 15:20 | Internal Med Progress Note ---
SUBJECTIVE Subjective Patient information: Note initiated : 05/07/20 at 3:18 pm Service Date, if different from initiated Date: [] Patient: Yusuf Schwab a 89 y/o M admitted on 05/02/20 for SOB, shikhaid. Chief Complaint: [] Interval history: Mr. Schwab is a 89 year old M with a past medical history of CHF, CAD, atrial fibrillation, CKD, positive COVID-19 and hypothyroidism who was brought to the ER from [facility] due to shortness of breath, oxygen desaturation, and low-grade fever. Patient is not able to give meaningful history due to mental status. In the ER, chest x-ray showed Moderate patchy right midlung and peripheral left lung infiltrates. Infection versus aspiration. His heart rate was high and the blood pressure was soft. Diltiazem was given to control the heart rate. 05/03 Comfort care was initiated last night. Continue comfort care 05/04 Patient seems to be comfortable Continue comfort care 05/05 Pt seems to be comfortable. Continue comfort care. 05/06-patient appears comfortable. Requiring frequent doses of morphine. Remains minimally responsive occasionally responding g to name at times, no active concerns per nursing staff. On COVID-19 precautions. Case discussed with patient's daughter Marilu on phone at [phone]. Cassie expressed concerns about her father being in pain and not getting enough pain medications to provide comfort. Per MAR states she had a discussion with the nurse this afternoon who confirmed that patient has been wincing in pain each time during body repositioning. However from what Usha understood from nurses conversation that the last dose received was around early this morning. Marilu would want frequent pain medications administered. I did discuss the risk of frequent dosing including respiratory depression, daughter Marilu out of compassion would want her father to be kept as comfortable as possible even if it entails increasing dose of narcotics understanding the risk of accentuated demise due to respiratory failure. I discussed with nursing building analyst/supervisor about scheduling pain medication to keep patient as comfortable as possible. During my visit with patient is minimally responsive but does not seem to be in apparent distress. Extended discussions about goals of care and current status with daughter undertaken on phone. Will frequently update family on patient's clinical status. 05/07-continuing comfort care interventions. On anxiolytics/opioids. Minimal urine output. No concerns expressed by nursing staff. No new events Constitutional Vitals: Vital Signs Temp Pulse Resp BP Pulse Ox 97.8 F 118 H 32 H 100/58 73 L 05/07/20 08:00 05/07/20 08:00 05/07/20 08:05 05/07/20 08:00 05/07/20 08:05 Period Temp Pulse Resp BP Sys/Lima Pulse Ox Last 24 Hr 97.8 F 92-118 30-32 88-100/52-58 73-76 Intake and Output 05/07/20 05/07/20 05/07/20 05:59 13:59 21:59 Output Total 150 Balance -150 Appears comfortable Minimally labored breathing Intake & Output: Intake & Output 05/07/20 05/07/20 05/07/20 05:59 13:59 21:59 Output Total 150 Balance -150 Output: Urine Catheter Amount 150 Other: Urine Appearance Cloudy Urine Color Dark Bianca Tea Colored Red Brown Urine Odor Foul Stool Consistency Loose OBJ DATA Labs CBC & Chem 7: 05/02/20 05:04 05/02/20 13:50 Meds: Medications Lorazepam (Ativan) 0.5 mg IV Q2-4HP PRN PRN Reason: ANXIETY/SEDATION Last Admin: 05/07/20 05:35 Dose: 0.5 mg Documented by: Morphine Sulfate (Morphine) 2 mg IV Q2HP PRN; Protocol PRN Reason: Per Pain Protocol Last Admin: 05/06/20 19:30 Dose: 2 mg Documented by: Morphine Sulfate (Morphine) 2 mg IV Q4 BIBI; Protocol Last Admin: 05/07/20 11:15 Dose: 2 mg Documented by: Ondansetron HCl (Zofran) 4 mg IV Q4-6HP PRN PRN Reason: Nausea And Vomiting Scopolamine (Transderm-Scop) 1 patch TOPICAL Q72H [facility] Last Admin: 05/05/20 18:31 Dose: 1 patch Documented by: Sodium Chloride (Saline Flush) 10 ml IV Q8 [facility] Last Admin: 05/07/20 04:05 Dose: 10 ml Documented by: A/P Narrative A/P Narrative: * End-of-life palliative care due to multiple issues as below. Magazine 2 score over 16 Acute hypoxic respiratory failure Pneumonia, Covid 19 Septic shock/hypotension Atrial fibrillation with RVR LILI on CKD CHF Hyponatremia Elevation of troponin Plan: Continue aggressive end-of-life care All therapies directed towards pain and symptom management as below Time Spent With Patient Time: Total time spent is greater than 50% in coordination of care (as documented) at patient's floor/unit and/or counseling patient:
[2020-05-08] MEDS: morphine 2 MG/ML VIAL IV SCH ×2 (03:47→07:55)
[2020-05-08] MEDS: 0.9 % SODIUM CHLORIDE 10 ML SYRINGE IV SCH (06:02)
[2020-05-08] MEDS: morphine 2 MG/ML VIAL IV PRN (06:02)
--- NOTE | 2020-05-08 11:16 | Death Note ---
Discharge Sum: Prov Provider Patient information: Note initiated : 05/08/20 at 11:14 am Service Date, if different from initiated Date: [] Patient: Yusuf Schwab a 89 y/o M admitted on 05/02/20 for SOB, covid. Chief Complaint: Cause of * Acute hypoxic respiratory failure * COVID-19 pneumonia Brief hospital course/ summary Mr. Schwab is a 89 year old M with a past medical history of CHF, CAD, atrial fibrillation, CKD, positive COVID-19 and hypothyroidism who was brought to the ER from [facility] due to shortness of breath, oxygen desaturation, and low-grade fever. Patient is not able to give meaningful history due to mental status. In the ER, chest x-ray showed Moderate patchy right midlung and peripheral left lung infiltrates. Infection versus aspiration. His heart rate was high and the blood pressure was soft. Diltiazem was given to control the heart rate. 05/03 Comfort care was initiated last night. Continue comfort care 05/04 Patient seems to be comfortable Continue comfort care 05/05 Pt seems to be comfortable. Continue comfort care. 05/06-patient appears comfortable. Requiring frequent doses of morphine. Remains minimally responsive occasionally responding g to name at times, no active concerns per nursing staff. On COVID-19 precautions. Case discussed with patient's daughter Marilu on phone at [phone]. Cassie expressed concerns about her father being in pain and not getting enough pain medications to provide comfort. Per MAR states she had a discussion with the nurse this afternoon who confirmed that patient has been wincing in pain each time during body repositioning. However from what Usha understood from nurses conversation that the last dose received was around early this morning. Marilu would want frequent pain medications administered. I did discuss the risk of frequent dosing including respiratory depression, daughter Marilu out of compassion would want her father to be kept as comfortable as possible even if it entails increasing dose of narcotics understanding the risk of accentuated demise due to respiratory failure. I discussed with nursing specialty manufacturing supervisor about scheduling pain medication to keep patient as comfortable as possible. During my visit with patient is minimally responsive but does not seem to be in apparent distress. Extended discussions about goals of care and current status with daughter undertaken on phone. Will frequently update family on patient's clinical status. 05/07-continuing comfort care interventions. On anxiolytics/opioids. Minimal urine output. No concerns expressed by nursing staff. No new events 05/08-patient overnight on comfort care interventions. No active distress noted. This morning patient was found to be in terminal state with shallow breathing and sats 70s. Shortly thereafter patient succumbed to progressive hypoxic respiratory failure secondary to underlying COVID-19 pneumonia Primary care physician: Gigi Miller DO Consults: 05/02/20 07:28 Consult to Physician [CONS] Routine Comment: Consulting Provider: Umberto Calle Reason For Exam: Physician to Consult Discharge Sum: Summary Date and Time Date of admission: 05/02/20 01:52 Additional Data Attending physician: Umberto Calle
== END 2020-05-08 10:40 | disposition expired | DRG 871 ==
LOC: ED 21:52 → ICU 05-02 01:52 → MEDSUR 05-04 14:46
PROVIDERS: ADMIT Internal Medicine; ATTEND Internal Medicine